=== PATIENT | female | born 1955 | race American Indian/Alaskan Native ===

== ENCOUNTER 2022-06-09 09:55 | Day surgery (SDC) | payer MEDICARE ==
[~2022-06-09 09:55] MED LIST: SODIUM CHLORIDE 0.9% 1000 ML 1,000 ML IV SCH
[2022-06-09] MEDS ORDERED: propofoL 200 MG/20 ML VIAL IV ONE ×2 (11:36→12:39)
--- NOTE | 2022-06-09 12:04 | Anesthesia Consultation ---
Anesthesia Consult and Med Hx Date of service: 06/09/22 - Pulmonary Exam CTA: Yes - Cardiac Exam Cardiac Exam: RRR - Pre-Operative Health Status ASA Pre-Surgery Classification: ASA4 Proposed Anesthetic Plan: MAC - Pulmonary Hx Smoking: No Hx Asthma: Yes Hx Respiratory Symptoms: No SOB: Yes COPD: No Home Oxygen Therapy: No Hx Pneumonia: No Hx Sleep Apnea: No (HI RISK) - Cardiovascular System Hx Hypertension: Yes ([employer] 3x/year) Hx Coronary Artery Disease: No Hx Heart Attack/AMI: No Hx Angina: No Hx Percutaneous Transluminal Coronary Angioplasty (PTCA): No Hx Cardia Arrhythmia: No Hx Pacemaker: No Hx Internal Defibrillator: No Hx Valvular Heart Disease: No Hx Heart Murmur: No Hx Peripheral Vascular Disease: No - Central Nervous System Hx Neuromuscular Disorder: No Hx Seizures: No CVA: No Hx Back Pain: Yes Hx Psychiatric Problems: No - Gastrointestinal Hx Ulcer: No Hx Gastroesophageal Reflux Disease: No - Endocrine Hx Renal Disease: No Hx End Stage Renal Disease: No Hx Cirrhosis: No Hx Liver Disease: No Hx Insulin Dependent Diabetes: No Hx Non-Insulin Dependent Diabetes: Yes (accucheck 116) Hx Thyroid Disease: Yes Hx Hypothyroidism: Yes Hx Hyperthyroidism: No - Hematic Hx Anemia: No Hx Sickle Cell Disease: No - Other Systems Hx Alcohol Use: No Hx Substance Use: No Hx Cancer: No Hx Obesity: Yes (bmi 56)
--- NOTE | 2022-06-09 12:05 | Anesthesia Day of Surgery ---
Anesthesia Day of Surgery - Day of Surgery Patient Examined: Yes Patient H&P Reviewed: Yes Patient is NPO: Yes (0700) Beta Blockers: Yes (metoprolol last pm) Cardiac Clearance: No (n/a) Pulmonary Clearance: No (n/a) Conor's Test: N/A
--- NOTE | 2022-06-09 12:51 | Short Stay Summary ---
Short Stay Documentation Date of service: 06/09/22 Narrative H&P: The patient presents for diagnostic colonoscopy for a positive Cologuard test - History Past Medical History: COPD, diabetes, hypertension, other (Morbid obesity) Past Surgical History: Social history: no significant social history - Allergies and Medications Current Medications: Allergies Penicillins Adverse Reaction (Verified 05/08/19 14:32) Unknown shrimp Adverse Reaction (Verified 05/08/19 14:32) Unknown Home Medications Medication Instructions Recorded Confirmed Last Taken Type Albuterol Sulfate [Albuterol 0.63% 0.63 mg IH TID PRN 05/08/19 05/08/19 Unknown History NEBS] Budesonide/Formoterol Fumarate 10.2 gm IH BIDI 05/08/19 05/08/19 Unknown History [Symbicort 160-4.5 Mcg Inhaler] Cetirizine HCl [ZyrTEC 10mg cap] 10 mg PO 05/08/19 Unknown History Ergocalciferol [Vitamin D2] 1 cap PO QWEEK 05/08/19 05/08/19 Unknown History Glimepiride [Amaryl] 4 mg PO QAM 05/08/19 05/08/19 Unknown History Levothyroxine Sodium [Synthroid] 200 mcg PO DAILY 05/08/19 05/08/19 Unknown History Losartan [Cozaar] 100 mg PO QDAY 05/08/19 05/08/19 Unknown History Omeprazole 1 tab PO DAILY 05/08/19 05/08/19 Unknown History Pantoprazole [Protonix INJ] 1 tab PO DAILY 05/08/19 05/08/19 Unknown History Rosuvastatin Calcium [Crestor] 10 mg PO DAILY 05/08/19 05/08/19 Unknown History Tofacitinib Citrate [Xeljanz] 5 mg PO BID 05/08/19 05/08/19 Unknown History Active Medications Sodium Chloride (Nacl 0.9% 1000 Ml) 1,000 mls @ 50 mls/hr IV DIRECT ALLISON - Physical exam General appearance: no acute distress, well-nourished, obese Integumentary: no rash, no growths, no abnormal pigmentation HEENT: Atraumatic, PERRLA, EOMI, Mucous membr. moist/pink Lungs: Clear to auscultation, Normal air movement Breasts: deferred Heart: Regular rate, Normal S1, Normal S2, No murmurs Gastrointestinal: normoactive bowel sounds, no tenderness, no distended, no masses, no guarding, no organomegaly, obese Female Genitourinary: deferred Rectal Exam: normal exam-external/orifice, normal rectal tone, no mass Extremities: no ischemia, pulses intact, pulses symmetrical, No edema, normal temperature, normal color, Full ROM Neurological: Normal gait, Normal speech, Strength at 5/5 X4 ext, Normal tone, Sensation intact, Cranial nerves 3-12 NL - Brief post op/procedure progress note Date of procedure: 06/09/22 Findings: see dictation Estimated blood loss: none Pathology: none Condition: stable - Disposition Condition at discharge: Good Disposition: 01 HOME / SELF CARE / HOMELESS - Discharge Diagnoses (1) Positive colorectal cancer screening using Cologuard test Status: Acute Short Stay Discharge Plan Activity: other (no driving for 24 hours) Weight Bearing Status: Weight Bear as Tolerated Diet: diabetic Follow up with: NOEL MADDEN MD [Primary Care Provider] - 7 Days
--- NOTE | 2022-06-09 12:56 | Operative Report ---
Operative Report Operative Report: Date of procedure: 06/09/2020 Preprocedure diagnosis: Positive Cologuard test Post procedure diagnosis: Possible flat cecal polyp. Otherwise normal exam to the ascending colon in the pre cecal area Procedure: Colonoscopy to the proximal ascending colon Endoscopist: Dr. Lemus Anesthesia: Monitored anesthesia care per anesthesia department Estimated blood loss: 0 Medications: Monitored anesthesia care. See separate report by anesthesia for details. After careful discussion of the nature and purpose of the procedure as well as details of the technique risks benefits and alternatives the patient gave consent. Please see recent history and physical from the office. The patient was placed in the left lateral decubitus position and medicated per anesthesia. A rectal exam was performed sphincter tone was normal there were no masses palpable. The [employer] 570 scope was passed transanally and advanced under continuous direct vision without difficulty to the proximal ascending colon near the cecum. Ileocecal valve was visible. The colon was well prepared. The cecum could not be seen in its entirety despite changes of the patient's position and applying external pressure. There was a possible flat polyp at 1 cm in size barely visible from the ascending colon, although could not be inspected sufficiently from this review. The ascending colon was normal. The transverse colon, descending colon, and sigmoid colon were normal. The rectum was normal on forward and retroflexed views. The procedure was well-tolerated overall and the patient was observed in recovery. Conclusions: Normal colonoscopy to the ascending colon. Possible flat polyp in the cecum although the cecum could not be inspected entirely despite effort to be certain. Plan: Consideration of barium enema to complete the imaging of the right colon. The patient will call the office in 1 week to discuss this. Signed electronically: Kevin Lemus M.D.
[2022-06-09] MEDS ORDERED: ALBUTEROL 2.5 MG/3 ML NEBU IH ONE (12:58)
--- NOTE | 2022-06-09 16:15 | Post Anesthesia Evaluation ---
- Post Anesthesia Evaluation Patient Participated: Yes Airway Patent: Yes Stable Respiratory Function: Yes Nausea/Vomiting: No Temp > 96.8F: Yes Pain Manageable: Yes Adequeate Hydration: Yes Anesthesia Complications: No Block Receding Appropriately: Not Applicable Patient on Ventilator: No
[2022-06-09 17:32] VITALS: BP 150/86
== END 2022-06-09 14:00 | disposition home or self-care (01) ==
LOC: GIO 09:55
PROVIDERS: ATTEND Internal Medicine Gastroenterology
DX: R19.5 Other fecal abnormalities (principal); I10 Essential (primary) hypertension; J45.909 Unspecified asthma, uncomplicated; E66.9 Obesity, unspecified; E11.9 Type 2 diabetes mellitus without complications; E03.9 Hypothyroidism, unspecified; Z88.8 Allergy status to other drugs, medicaments and biological substances; Z79.899 Other long term (current) drug therapy; Z68.43 Body mass index [BMI] 50.0-59.9, adult
CPT/HCPCS: 45378; 82962; J2704; J7030